=== PATIENT | male | born 1985 | race Caucasian/White ===

== ENCOUNTER 2020-01-10 21:34 | Emergency (ER) | payer BC ==
[~2020-01-10] VITALS: Ht 190.5 cm; Wt 113.4 kg
[2020-01-10 22:20] LABS: HEMATOCRIT 45.7 % (42.0-52.0); HEMOGLOBIN 15.7 gm/dL (14.0-18.0); MCH 29.9 pg (26.0-34.0); MCHC 34.3 g/dL (28.0-37.0); MCV 87.1 fL (80.0-100.0); MPV 7.7 fl. (7.2-11.1); RBC 5.24 mil/uL (4.50-6.00); WBC 22.9 thou/uL (4.0-11.0)
[2020-01-10 22:34] LABS: POTASSIUM 4.3 mmol/L (3.5-5.1)
[2020-01-10 22:39] LABS: ALBUMIN 4.7 g/dL (3.4-5.0); TOTAL BILIRUBIN 0.5 mg/dL (<0.1-1.0)
[2020-01-11] MEDS ORDERED: NORCO 5-325 TA1 EAC1 PO (00:57)
[2020-01-11] MEDS ORDERED: KEFLEX500 M1 PO (00:57)
[2020-01-11 02:05] VITALS: BP 123/76
== END 2020-01-11 02:05 | disposition home or self-care (01) ==
LOC: M.ERS 21:34
PROVIDERS: Emergency Medicine Emergency Medical Services
DX: S02.2XXA Fracture of nasal bones, initial encounter for closed fracture (principal); S92.512A Displaced fracture of proximal phalanx of left lesser toe(s), initial encounter for closed fracture; S82.62XA Displaced fracture of lateral malleolus of left fibula, initial encounter for closed fracture; S32.019A Unspecified fracture of first lumbar vertebra, initial encounter for closed fracture; S32.029A Unspecified fracture of second lumbar vertebra, initial encounter for closed fracture; S32.039A Unspecified fracture of third lumbar vertebra, initial encounter for closed fracture; V29.49XA Motorcycle driver injured in collision with other motor vehicles in traffic accident, initial encounter; Y93.89 Activity, other specified; Y92.89 Other specified places as the place of occurrence of the external cause; Y99.8 Other external cause status